=== PATIENT | male | born 1985 ===

== ENCOUNTER 2018-03-19 08:51 | Outpatient (REF) | payer SELFPAY | END 2018-03-19 08:52 | LOC: OM 08:51 | PROVIDERS: Visit Provider Nurse Practitioner Family | DX: Z02.1 Encounter for pre-employment examination (principal) ==

== ENCOUNTER 2018-03-19 08:51 | Outpatient (REF) | payer SELFPAY | END 2018-03-19 08:52 | LOC: OM 08:51 | PROVIDERS: Visit Provider Nurse Practitioner Family | DX: Z02.83 Encounter for blood-alcohol and blood-drug test (principal) ==